=== PATIENT | male | born 1990 | race American Indian/Alaskan Native ===

== ENCOUNTER 2021-11-01 13:49 | Emergency (ER) | payer OTHER ==
[2021-11-01 14:43] VITALS: BP 130/73
== END 2021-11-02 03:22 | disposition left against medical advice (07) ==
LOC: ED 13:49
DX: S99.919A Unspecified injury of unspecified ankle, initial encounter (principal); S39.92XA Unspecified injury of lower back, initial encounter; Z53.21 Procedure and treatment not carried out due to patient leaving prior to being seen by health care provider; W19.XXXA Unspecified fall, initial encounter; Y93.89 Activity, other specified; Y92.89 Other specified places as the place of occurrence of the external cause; Y99.8 Other external cause status